=== PATIENT | male | born 1975 | race Caucasian/White ===

== ENCOUNTER 2018-02-09 00:55 | Emergency (ER) | payer MEDICAID ==
--- NOTE | 2018-02-09 01:25 | ER Document Report ---
ED General <OLLIE BRINK - Last Filed: 02/09/18 05:54> <MIN DE SANTIAGO - Last Filed: 02/09/18 08:26> <ABIEL GOLDMAN - Last Filed: 02/15/18 18:45> - General Stated Complaint: PSYCH EVAL Time Seen by Provider: 02/09/18 01:14 Notes: Patient is a very intoxicated 43-year-old male who presents with complaint of wanting to "blow up the world". He will not tell me why he wants to do this. He says he just got out of retirement today. Says he went and drank a lot. He says he does not like the way the world works. He will not answered me as to whether or not he is suicidal as well. He denies taking medications. He patient is very intoxicated and is difficult to get an accurate history as the patient continues to talk in circles. (OLLIE BRINK) - Related Data Allergies/Adverse Reactions: No Known Allergies Allergy (Unverified 02/09/18 02:35) Past Medical History - Social History Smoking Status: Unknown if Ever Smoked Frequency of alcohol use: Occasional Drug Abuse: None <OLLIE BRINK - Last Filed: 02/09/18 05:54> Review of Systems - Review of Systems -: Yes ROS unobtainable due to patient's medical condition - Patient is very intoxicated <OLLIE BRINK - Last Filed: 02/09/18 05:54> Physical Exam <OLLIE BRINK - Last Filed: 02/09/18 05:54> <MIN DE SANTIAGO - Last Filed: 02/09/18 08:26> <ABIEL GOLDMAN - Last Filed: 02/15/18 18:45> - Vital signs Vitals: Temp Pulse Resp BP Pulse Ox 98.0 F 98 18 131/80 H 96 02/09/18 01:08 02/09/18 01:08 02/09/18 01:08 02/09/18 01:08 02/09/18 01:08 - Notes Notes: General Appearance: Well nourished, alert, cooperative, no acute distress, no obvious discomfort. Vitals: reviewed, See vital signs table. Head: no swelling or tenderness to the head Eyes: PERRL, EOMI, Conjuctiva clear Mouth: No decreasd moisture Neck: Supple, no neck tenderness, No thyromegaly Lungs: No wheezing, No rales, No rhonci, No accessory muscle use, good air exchange bilaterally. Heart: Normal rate, Regular rythm, No murmur, no rub Abdomen: Normal BS, soft, No rigidity, No abdominal tenderness, No guarding, no rebound, no abdominal masses, no organomegaly Extremities: strength 5/5 in all extremities, good pulses in all extremities, no swelling or tenderness in the extremities, no edema. Skin: warm, dry, appropriate color, no rash Neuro: speech clear, oriented x 2, intoxicated affect, responds appropriately to questions. Renal nerves II through XII are intact. Distal sensation intact. Patient is able stand and walk on his own but does have staggered gait from being intoxicated. Gastric. Patient will answer some questions however is hard to get him to focus on certain specific questions as he goes off on tangents and sometimes I am unable to get answers to specific questions because of this. It is unclear if this is related to underlying psychiatric illness, alcohol intoxication, or combination thereof. (OLLIE BRINK) Course - Laboratory Result Diagrams: 02/09/18 02:20 02/09/18 02:20 <OLLIE BRINK - Last Filed: 02/09/18 05:54> - Laboratory Result Diagrams: 02/09/18 02:20 02/09/18 02:20 <MIN DE SANTIAGO - Last Filed: 02/09/18 08:26> - Laboratory Result Diagrams: 02/09/18 02:20 02/09/18 02:20 <ABIEL GOLDMAN - Last Filed: 02/15/18 18:45> - Re-evaluation Re-evalutation: 02/09/18 02:01 02/09/18 02:02 02/09/18 02:02 Patient's EKG does have concave up ST segment elevation is fairly diffuse I think is most likely just early repolarization abnormally. Patient is very drunk but denies any chest pain. I suspect this again is early repolarization abnormal however I will just obtain one troponin to make sure that it is within normal range. He does not have any symptoms of pericarditis; however, again the patient is very intoxicated. 02/09/18 05:54 Patient's troponin labs came back normal. Urine drug screen still pending. At this time patient is medically stable for psychiatric evaluation. I will fill out IVC paperwork on him. Dictation of this chart was performed using voice recognition software; therefore, there may be some unintended grammatical errors. (OLLIE BRINK) - Vital Signs Vital signs: Temp Pulse Resp BP Pulse Ox 97.8 F 100 20 136/80 H 96 02/09/18 10:03 02/09/18 10:03 02/09/18 10:03 02/09/18 10:03 02/09/18 10:03 - Laboratory Laboratory results interpreted by me: 02/09/18 02/09/18 02:20 08:10 Carbon Dioxide 19 L Urine Ketones TRACE H Salicylates < 1.0 L Acetaminophen < 10 L - EKG Interpretation by Me Additional EKG results interpreted by me: 02/09/18 02:02 EKG is reviewed and interpreted by me. EKG shows diffuse concave up ST segment elevation consistent with probable early repolarization abnormality. No reciprocal ST segment depression. DE interval, QRS duration, QTc intervals are within normal range. No old EKG available for comparison. (OLLIE BRINK) Discharge <OLLIE BRINK - Last Filed: 02/09/18 05:54> <MIN DE SANTIAGO - Last Filed: 02/09/18 08:26> <ABIEL GOLDMAN - Last Filed: 02/15/18 18:45> - Discharge Clinical Impression: Antisocial personality disorder Condition: Stable Disposition: HOME, SELF-CARE Additional Instructions: Your recommended to follow-up with outpatient mental health therapeutic services to appropriately address your triggers and copping skills. AT ANY TIME, IF YOUR SYMPTOMS CHANGE SIGNIFICANTLY OR WORSEN OR YOU DEVELOP NEW SYMPTOMS, RETURN TO THE EMERGENCY DEPARTMENT IMMEDIATELY FOR RE-EVALUATION. Referrals: [facility] [Outside] - Follow up as needed [facility] [Outside] - Follow up in 3-5 days
[2018-02-09 02:31] LABS: ABSOLUTE BASOPHILS # (AUTO) 0.1 10^3/uL (0.0-0.2); ABSOLUTE LYMPHOCYTES (AUTO) 1.9 10^3/uL (0.5-4.7); ABSOLUTE MONOCYTES (AUTO) 0.7 10^3/uL (0.1-1.4); ABSOLUTE NEUT (AUTO) 4.9 10^3/uL (1.7-8.2); BASOPHILS % (AUTO) 0.7 % (0-2); EOSINOPHILS % (AUTO) 0.4 % (0-6); HEMATOCRIT 44.1 % (37.9-51.0); HEMOGLOBIN 15.4 g/dL (13.5-17.0); MEAN CORPUSCULAR HEMOGLOBIN 29.7 pg (27.0-33.4); MEAN CORPUSCULAR HGB CONC 34.8 g/dL (32.0-36.0); MEAN CORPUSCULAR VOLUME 85 fl (80-97); MONOCYTES % (AUTO) 8.7 % (3-13); PLATELET COUNT 306 10^3/uL (150-450); RED BLOOD COUNT 5.17 10^6/uL (4.35-5.55); RED CELL DISTRIBUTION WIDTH 12.9 % (11.5-14.0); SEGMENTED NEUTROPHILS % (AUTO) 65.2 % (42-78); TOTAL CELLS COUNTED % (AUTO) 100 %; WHITE BLOOD COUNT 7.5 10^3/uL (4.0-10.5)
[2018-02-09 02:41] LABS: ALANINE AMINOTRANSFERASE 48 U/L (21-72); ALBUMIN 4.6 g/dL (3.5-5.0); ALCOHOL 166 mg/dL (NONE DETECTED); ALKALINE PHOSPHATASE 68 U/L (38-126); ANION GAP 19 (5-19); ASPARTATE AMINO TRANSFERASE 36 U/L (17-59); BILIRUBIN,DIRECT 0.3 mg/dL (0.0-0.4); BILIRUBIN,TOTAL 0.3 mg/dL (0.2-1.3); BLOOD UREA NITROGEN 8 mg/dL (7-20); CALCIUM 9.5 mg/dL (8.4-10.2); CARBON DIOXIDE 19 mmol/L (22-30); CHLORIDE 106 mmol/L (98-107); GLUCOSE 89 mg/dL (75-110); POTASSIUM 3.9 mmol/L (3.6-5.0); SODIUM 144.2 mmol/L (137-145)
[2018-02-09 02:43] LABS: ACETAMINOPHEN < 10 ug/mL (10-30); SALICYLATE < 1.0 mg/dL (2.0-20.0)
[2018-02-09 08:39] LABS: URINE AMPHETAMINES SCREEN NEGATIVE; URINE BARBITURATES SCREEN NEGATIVE; URINE BENZODIAZEPINES SCREEN NEGATIVE; URINE COCAINE SCREEN NEGATIVE; URINE MARIJUANA (THC) SCREEN NEGATIVE; URINE METHADONE SCREEN NEGATIVE; URINE PHENCYCLIDINE SCREEN NEGATIVE
[2018-02-09 08:44] LABS: APPEARANCE,URINE CLEAR; BILIRUBIN,URINE NEGATIVE (NEGATIVE); COLOR,URINE YELLOW; GLUCOSE, URINE NEGATIVE (NEGATIVE); KETONES,URINE TRACE mg/dL (NEGATIVE); LEUKOCYTE ESTERASE,URINE NEGATIVE (NEGATIVE); NITRITE,URINE NEGATIVE (NEGATIVE); PROTEIN,URINE NEGATIVE (NEGATIVE); URINE SPECIFIC GRAVITY 1.009; UROBILINOGEN,URINE NEGATIVE mg/dL (<2.0)
--- NOTE | 2018-02-09 09:22 | EKG REPORT ---
SEVERITY:- NORMAL ECG - SINUS RHYTHM : Confirmed by: Bre Brooke 09-Feb-2018 09:21:19
--- NOTE | 2018-02-09 10:07 | ER Document Report ---
Doctor's Note Notes: 02/09/18 10:06 Rounds: Chart reviewed and patient interviewed. Patient reportedly just got out of custodial yesterday. He was drinking heavily. He is here today feeling suicida. Vital signs are all normal. Lab studies were normal except for a blood alcohol of 166. Patient appears to be medically stable for transfer or discharge. Socorro Salas MD
--- NOTE | 2018-02-09 10:11 | PSYCHOLOGICAL NOTE ---
Psych Note - Psych Note Psych Note: Reason for Consult: Suicidal/homicidal ideation, substance abuse Consent permissions; none given Patient is alert, appears etoh with slurred speech. states he was released from halfway today, had no ride to get anywhere, got ahold of some beers and wanted to take [place] out. states he was going to invent a bomb. also states SI with plan by "slinging myself around a tree". but pt also states he does not want to hurt anyone. Patient disclosed that he was released from halfway yesterday and his roommate kicked him out. He continued to report that he was walking around [facility] and attempted to call multiple friends and nobody answered. He reports he then called 911 to report that he "was in a bad way" and needs help. Patient reports "I am here because I need help for my mental illness... The doctor from [facility] told me I should call." He continued to report that he should be "in a rubber room" and that he is "not fit for society." Patient makes multiple comments of homicidal ideation (i.e. going into [employer] and shooting up people or grabbing a knife and slitting someone's throat); patient confirms he does not have access to any weapons. Patient then began to state that he is trying to turn his life around to be be a "productive citizen of society" and does not want to harm others or himself; he wants to do something with his life. He reports that he called because he had now where to go and did not what to go back to halfway. Patient reports he has been inpatient in [facility], and one other inpatient psychiatric treatment. He reports that medications never help him and confirms he has never followed through with outpatient therapeutic services. He reports he receives disability, gets paid the 1st and only has a "few dollars on my halfway card and a few dollars in my wallet." He reports that he probably should not have drank last night and gone straight [facility] however chose not to. Reports trauma from childhood, being in and out pf halfway most of his life starting at age 15, and being diagnosed as "MDD" but feels that this might be bipolar. He continued to report that his personal schizophrenic symptoms are that he "lives in a delusional world" because he isolates himself, talks to himself and has imaginary friends. Patient is alert and orientated to person, place, time and circumstance. Mood shifts from euthymic to irritable with congruent affect. Clinician notes patient's mood is directly related to his perceived interpretation of whether he is being discharged or not (when feeling he is going to be discharged he becomes very irritable and argumentative). Patient endorses passive suicidal ideation i.e. no plans means or intent. It is noted the patient fluctuates back and forth stating that he wants help, does not want anything to harm himself or others but then will attempt to justify his need for inpatient psychiatric treatment and restate ideation. Delusions are absent and behaviors congruent with an intact reality based presentation i.e. organized and linear thought processes. Eye contact is poor. Conversational speech is long-winded and rambling requiring clinician many times to interrupt the patient to get required information. Intellectual abilities appear to be within the average range. Attention and concentration is poor. Insight, judgment, impulse control is fair as evidenced by the patient calling for assistance in coming into [facility] ED voluntarily. No medication recommendations at this time 301.9 (F60.9) unspecified personality disorder Impression\\plan: Patient is cleared from acute psychiatric services. Patient does not meet IVC criteria per [place] GS 122C. Patient behavior demonstrates strong cluster B traits with secondary gain. Patient is attempting to use inpatient psychiatric treatment to meet his socioeconomic needs. Patient is recommended to follow-up with outpatient mental health services to address his personality disorder, to learn triggers and coping skills. Inpatient psychiatric treatment would not be appropriate; the most effective course of treatment for personality disorder is therapeutic, which he would receive through outpatient services. Dr. Manjarrez was consulted and the care management this patient; attending physician is in agreement with recommendations and disposition.
[2018-02-09 10:20] VITALS: BP 136/80
== END 2018-02-09 10:20 | disposition home or self-care (01) ==
LOC: ER 00:55
DX: F60.2 Antisocial personality disorder (principal); R45.851 Suicidal ideations; R45.850 Homicidal ideations; F10.920 Alcohol use, unspecified with intoxication, uncomplicated; Y90.6 Blood alcohol level of 120-199 mg/100 ml
CPT/HCPCS: 36415; 80053; 80307; 81001; 84484; 85025; 93005; 93010; 99285

== ENCOUNTER 2018-02-10 02:56 | Emergency (ER) | payer MEDICAID ==
[2018-02-10 03:25] LABS: ABSOLUTE EOSINOPHILS # (AUTO) 0.2 10^3/uL (0.0-0.6); ABSOLUTE LYMPHOCYTES (AUTO) 1.4 10^3/uL (0.5-4.7); ABSOLUTE MONOCYTES (AUTO) 0.8 10^3/uL (0.1-1.4); ABSOLUTE NEUT (AUTO) 6.1 10^3/uL (1.7-8.2); BASOPHILS % (AUTO) 0.4 % (0-2); EOSINOPHILS % (AUTO) 2.5 % (0-6); HEMATOCRIT 45.5 % (37.9-51.0); HEMOGLOBIN 15.9 g/dL (13.5-17.0); LYMPHOCYTES % (AUTO) 16.5 % (13-45); MEAN CORPUSCULAR HEMOGLOBIN 29.6 pg (27.0-33.4); MEAN CORPUSCULAR VOLUME 85 fl (80-97); MONOCYTES % (AUTO) 9.3 % (3-13); PLATELET COUNT 321 10^3/uL (150-450); RED BLOOD COUNT 5.37 10^6/uL (4.35-5.55); SEGMENTED NEUTROPHILS % (AUTO) 71.3 % (42-78); TOTAL CELLS COUNTED % (AUTO) 100 %; WHITE BLOOD COUNT 8.6 10^3/uL (4.0-10.5)
--- NOTE | 2018-02-10 03:27 | ER Document Report ---
ED Psych Disorder / Suicide - General Mode of Arrival: Ambulatory Information source: Patient TRAVEL OUTSIDE OF THE [place] IN LAST 30 DAYS: No <ESTRELLITA LACY - Last Filed: 02/10/18 03:35> <JUAN MCGRAW - Last Filed: 02/10/18 03:59> - General Chief Complaint: Psych Problem Stated Complaint: IVC Time Seen by Provider: 02/10/18 03:01 Notes: Patient is a 43 year old male with anxiety, bipolar disorder and depression presents to the emergency department via [facility] complaining of suicidal ideation and homicidal ideation. According to IVC paperwork via [facility] patient stated he wanted to slit peoples throats and watch them bleed then proceed to slit his own throat. At bedside patient states he is depressed and suicidal and mentions presenting to the emergency department yesterday for similar symptoms. He states he was discharged with resources but chose not to follow up. He also states he is noncompliant with his medications. According to [facility] records, patient presented to the emergency department on 02/08 stating he would like to blow up the world and reports getting out of prison that day. (ESTRELLITA LACY) - Related Data Allergies/Adverse Reactions: No Known Allergies Allergy (Unverified 02/09/18 02:35) Past Medical History - General Information source: Patient, Law Enforcement - Social History Smoking Status: Unknown if Ever Smoked Family History: Reviewed & Not Pertinent - Past Medical History Cardiac Medical History: Reports: Hx Heart Attack - x'2 Psychiatric Medical History: Reports: Hx Bipolar Disorder, Hx Depression <ESTRELLITA LACY - Last Filed: 02/10/18 03:35> Review of Systems - Review of Systems Constitutional: No symptoms reported EENT: No symptoms reported Cardiovascular: No symptoms reported Respiratory: No symptoms reported Gastrointestinal: No symptoms reported Genitourinary: No symptoms reported Male Genitourinary: No symptoms reported Musculoskeletal: No symptoms reported Skin: No symptoms reported Hematologic/Lymphatic: No symptoms reported Neurological/Psychological: See HPI, Homicidal ideation, Suicidal ideation -: Yes All other systems reviewed and negative <ESTRELLITA LACY - Last Filed: 02/10/18 03:35> Physical Exam - General General appearance: Anxious, Other - Disheveled - HEENT Head: Normocephalic, Atraumatic Eyes: Normal Conjunctiva: Normal Extraocular movements intact: Yes Pupils: PERRL Mucous membranes: Normal Neck: Normal - Respiratory Respiratory status: No respiratory distress Chest status: Nontender Breath sounds: Normal Chest palpation: Normal - Cardiovascular Rhythm: Regular Heart sounds: Normal auscultation Murmur: No Friction rub: No Gallop: None auscultated - Extremities General upper extremity: Normal ROM General lower extremity: Normal ROM - Neurological Neuro grossly intact: Yes Cognition: Normal Orientation: AAOx4 Rosita Coma Scale Eye Opening: Spontaneous [place] Coma Scale Verbal: Oriented Rosita Coma Scale Motor: Obeys Commands Rosita Coma Scale Total: 15 Speech: Normal - Psychological Associated symptoms: Anxious - Skin Skin Temperature: Warm Skin Moisture: Dry Skin Color: Normal <ESTRELLITA LACY - Last Filed: 02/10/18 03:35> - Vital signs Vitals: Temp Pulse Resp BP Pulse Ox 97.8 F 86 18 132/87 H 95 02/10/18 03:04 02/10/18 03:04 02/10/18 03:04 02/10/18 03:04 02/10/18 03:04 Course - Laboratory Result Diagrams: 02/10/18 03:10 02/10/18 03:10 <ESTRELLITA LACY - Last Filed: 02/10/18 03:35> - Laboratory Result Diagrams: 02/10/18 03:10 02/10/18 03:10 - EKG Interpretation by Nc EKG shows normal: Sinus rhythm Rate: Normal Rhythm: NSR <JUAN MCGRAW - Last Filed: 02/10/18 03:59> - Re-evaluation Re-evalutation: 02/10/18 03:47 Patient is a 43-year-old male who comes in complaining of suicidal as well as homicidal ideation. He was placed on IVC paperwork by crisis services. Patient has a history of anxiety and depression and is supposed to be on medications but has not been prescribed them in quite some time. He states that he is both anxious and depressed. His plan was to cut other people's throat and then cut his own throat. Blood work is within normal limits. Patient is medically stable. He has been given Zyprexa for anxiety and sleep this evening. He will be held for evaluation by mental health services. Patient is agreeable to this plan. (JUAN MCGRAW) - Vital Signs Vital signs: Temp Pulse Resp BP Pulse Ox 97.8 F 86 18 132/87 H 95 02/10/18 03:04 02/10/18 03:04 02/10/18 03:04 02/10/18 03:04 02/10/18 03:04 - Laboratory Laboratory results interpreted by me: 02/10/18 02/10/18 03:10 03:10 Chloride 108 H Urine Ketones TRACE H Salicylates < 1.0 L Acetaminophen < 10 L Discharge <ESTRELLITA LACY - Last Filed: 02/10/18 03:35> <JUAN MCGRAW - Last Filed: 02/10/18 03:59> - Discharge Clinical Impression: Suicidal ideation, Homicidal ideation Condition: Stable Disposition: OTHER Scribe Attestation: 02/10/18 03:48 I personally performed the services described in the documentation, reviewed and edited the documentation which was dictated to the scribe in my presence, and it accurately records my words and actions. (JUAN MCGRAW) Scribe Documentation - Scribe Written by Junior:: Junior Sheth, 02/10/2018 03:34 acting as scribe for :: Michael <ESTRELLITA LACY - Last Filed: 02/10/18 03:35>
[2018-02-10 03:34] LABS: APPEARANCE,URINE CLEAR; BILIRUBIN,URINE NEGATIVE (NEGATIVE); COLOR,URINE YELLOW; GLUCOSE, URINE NEGATIVE (NEGATIVE); KETONES,URINE TRACE mg/dL (NEGATIVE); LEUKOCYTE ESTERASE,URINE NEGATIVE (NEGATIVE); NITRITE,URINE NEGATIVE (NEGATIVE); PROTEIN,URINE NEGATIVE (NEGATIVE); URINE SPECIFIC GRAVITY 1.019; UROBILINOGEN,URINE NEGATIVE mg/dL (<2.0)
[2018-02-10] MEDS ORDERED: OLANZAPINE 5 MG TAB.RAPDIS PO ONE (03:34)
[2018-02-10 03:36] LABS: ACETAMINOPHEN < 10 ug/mL (10-30); ALANINE AMINOTRANSFERASE 56 U/L (21-72); ALBUMIN 4.6 g/dL (3.5-5.0); ALCOHOL < 10 mg/dL (NONE DETECTED); ALKALINE PHOSPHATASE 80 U/L (38-126); ANION GAP 14 (5-19); ASPARTATE AMINO TRANSFERASE 39 U/L (17-59); BILIRUBIN,DIRECT 0.3 mg/dL (0.0-0.4); BILIRUBIN,TOTAL 0.6 mg/dL (0.2-1.3); BLOOD UREA NITROGEN 17 mg/dL (7-20); CALCIUM 9.8 mg/dL (8.4-10.2); CARBON DIOXIDE 22 mmol/L (22-30); CHLORIDE 108 mmol/L (98-107); GLUCOSE 93 mg/dL (75-110); POTASSIUM 3.9 mmol/L (3.6-5.0); SALICYLATE < 1.0 mg/dL (2.0-20.0); SODIUM 143.8 mmol/L (137-145); TOTAL PROTEIN 7.6 g/dL (6.3-8.2)
[2018-02-10 03:45] LABS: URINE AMPHETAMINES SCREEN NEGATIVE; URINE BARBITURATES SCREEN NEGATIVE; URINE BENZODIAZEPINES SCREEN NEGATIVE; URINE COCAINE SCREEN NEGATIVE; URINE MARIJUANA (THC) SCREEN UNCONFIRMED POSITIVE; URINE METHADONE SCREEN NEGATIVE; URINE PHENCYCLIDINE SCREEN NEGATIVE
--- NOTE | 2018-02-10 10:48 | ER Document Report ---
Doctor's Note Notes: 02/10/18 10:45 Patient resting comfortably in bed, mental health team is very spoken to him about appropriate utilization of services, patient seems to provide a number of excuses as to why he did not go through proper channels to get help, but does not take responsibility for his actions, patient was advised to follow-up as an outpatient appropriately for further assistance with obtaining his mental health medications that he was on previously, he does admit that he is currently homeless as he was just released from care home after having an argument with his roommate and is under a restraining order from going back to the property, states that he has a friend that he might be able to stay with but was unable to get in touch with him on the phone yesterday evening patient is medically cleared for discharge, provided with a list of resources to follow-up with Discharge - Discharge Clinical Impression: Suicidal ideation, Homicidal ideation, Antisocial personality disorder Condition: Stable Disposition: HOME, SELF-CARE Additional Instructions: AT ANY TIME, IF YOUR SYMPTOMS CHANGE SIGNIFICANTLY OR WORSEN OR YOU DEVELOP NEW SYMPTOMS, RETURN TO THE EMERGENCY DEPARTMENT IMMEDIATELY FOR RE-EVALUATION. Referrals: [facility] [Outside] - Follow up as needed Scribe Attestation: 02/10/18 03:48 I personally performed the services described in the documentation, reviewed and edited the documentation which was dictated to the scribe in my presence, and it accurately records my words and actions.
[2018-02-10 10:58] VITALS: BP 121/77
--- NOTE | 2018-02-10 23:10 | EKG REPORT ---
SEVERITY:- OTHERWISE NORMAL ECG - SINUS RHYTHM BORDERLINE LEFT AXIS DEVIATION : Confirmed by: Bre Brooke 10-Feb-2018 23:09:18
--- NOTE | 2018-02-11 22:10 | PSYCHOLOGICAL NOTE ---
Psych Note - Psych Note Psych Note: Reason For Consult: IVC Pt. reports having SI/HI thoughts, presents to ED on IVC papers with [facility], pt. has HX of bipolar and MDD, hasn't been on meds for months, was in [place] last year for significant time. Had plan to cut people's throats to watch them bleed and cut his own throat. Pt. has been calm and cooperative. Patient was evaluated by this clinician and Dr. Manjarrez Patient first stated he came to [facility] because of a suicide attempt but then stated he only had thoughts. He reports nothing has changed from the last time he was evaluated (patient was evaluated yesterday by this clinician). He confirms that he did not follow up with recommendations provided. Patient reports severe depression and suicidal ideation that he has "suffered my whole life; "however, denies requesting assistance while in senior living and again confirms he has not been medication compliant for years "because they don't work." Patient disclosed he thought it would cost $20 to see a nurse in senior living and then confirms he has been in senior living multiple times and understands the processes. No medication recommendations at this time 301.9 (F60.9) unspecified personality disorder Impression\\plan: Patient is cleared from acute psychiatric services. Patient does not meet IVC criteria per [place] GS 122C. Patient behavior demonstrates strong cluster B traits with secondary gain. Patient is attempting to use inpatient psychiatric treatment to meet his socioeconomic needs. Patient was just evaluated yesterday for the same complaints. Patient is again recommended to follow-up with outpatient mental health services to address his personality disorder, to learn triggers and coping skills. Inpatient psychiatric treatment would not be appropriate; the most effective course of treatment for personality disorder is therapeutic, which he would receive through outpatient services. Dr. Manjarrez was present for evaluation and is in agreement with care and management of this patient; attending physician is in agreement with recommendations and disposition.
== END 2018-02-10 11:15 | disposition home or self-care (01) ==
LOC: ER 02:56
DX: R45.850 Homicidal ideations (principal); R45.851 Suicidal ideations; F60.2 Antisocial personality disorder; F32.9 Major depressive disorder, single episode, unspecified; F41.9 Anxiety disorder, unspecified; Z91.14 Patient's other noncompliance with medication regimen; Z59.0 Homelessness; I25.2 Old myocardial infarction
CPT/HCPCS: 93005; 99285; 36415; 80307 ×4; 85025; 80053; 81001; 93010; J3490

== ENCOUNTER 2018-03-01 13:36 | Emergency (ER) | payer MEDICAID ==
[2018-03-01 14:41] LABS: ABSOLUTE BASOPHILS # (AUTO) 0.1 10^3/uL (0.0-0.2); ABSOLUTE LYMPHOCYTES (AUTO) 0.9 10^3/uL (0.5-4.7); ABSOLUTE MONOCYTES (AUTO) 0.5 10^3/uL (0.1-1.4); ABSOLUTE NEUT (AUTO) 5.8 10^3/uL (1.7-8.2); BASOPHILS % (AUTO) 0.9 % (0-2); EOSINOPHILS % (AUTO) 0.3 % (0-6); HEMATOCRIT 45.1 % (37.9-51.0); HEMOGLOBIN 15.5 g/dL (13.5-17.0); MEAN CORPUSCULAR HEMOGLOBIN 29.7 pg (27.0-33.4); MEAN CORPUSCULAR HGB CONC 34.4 g/dL (32.0-36.0); MEAN CORPUSCULAR VOLUME 86 fl (80-97); PLATELET COUNT 369 10^3/uL (150-450); RED BLOOD COUNT 5.24 10^6/uL (4.35-5.55); RED CELL DISTRIBUTION WIDTH 13.1 % (11.5-14.0); SEGMENTED NEUTROPHILS % (AUTO) 79.8 % (42-78); TOTAL CELLS COUNTED % (AUTO) 100 %; WHITE BLOOD COUNT 7.3 10^3/uL (4.0-10.5)
--- NOTE | 2018-03-01 14:57 | ER Document Report ---
ED General <DE SANTIAGOMIN - Last Filed: 03/01/18 16:17> - General TRAVEL OUTSIDE OF THE U.S. IN LAST 30 DAYS: No - HPI Patient complains to provider of: Suicidal ideation <MARIANA LEUNG - Last Filed: 03/01/18 22:31> - General Chief Complaint: Suicidal Ideation Stated Complaint: SUICIDAL IDEATION Time Seen by Provider: 03/01/18 14:33 - HPI Notes: Patient coming in for suicidal ideation. Patient states he has planned poisoning however is unable to give any further information. Patient does reveal he recently was released from intermediate patient has had multiple other visits for psychiatric reasons here in the hospital. Denies any fever chills nausea vomiting diarrhea. Patient states that he was seen at [place] started on certain medications are thinks those medications were not for him. Patient states he has not been able take any other medications at this time is not currently taking anything. Patient does admit to using amphetamines recently. Resting comfortably no signs of any obvious distress (MARIANA LEUNG) - Related Data Allergies/Adverse Reactions: No Known Allergies Allergy (Unverified 02/09/18 02:35) Past Medical History - Social History Smoking Status: Unknown if Ever Smoked Family History: Reviewed & Not Pertinent Patient has suicidal ideation: Yes Patient has homicidal ideation: No - Past Medical History Cardiac Medical History: Reports: Hx Heart Attack - x'2 Renal/ Medical History: Denies: Hx Peritoneal Dialysis Psychiatric Medical History: Reports: Hx Bipolar Disorder, Hx Depression <MARIANA LEUNG - Last Filed: 03/01/18 22:31> Review of Systems - Review of Systems Constitutional: No symptoms reported EENT: No symptoms reported Cardiovascular: No symptoms reported Respiratory: No symptoms reported Gastrointestinal: No symptoms reported Genitourinary: No symptoms reported Male Genitourinary: No symptoms reported Musculoskeletal: No symptoms reported Skin: No symptoms reported Hematologic/Lymphatic: No symptoms reported Neurological/Psychological: Suicidal ideation -: Yes All other systems reviewed and negative <MARIANA LEUNG - Last Filed: 03/01/18 22:31> Physical Exam - Vital signs Interpretation: Normal - General General appearance: Appears well, Alert - HEENT Head: Normocephalic, Atraumatic Eyes: Normal Pupils: PERRL - Respiratory Respiratory status: No respiratory distress Chest status: Nontender Breath sounds: Normal Chest palpation: Normal - Cardiovascular Rhythm: Regular Heart sounds: Normal auscultation Murmur: No - Abdominal Inspection: Normal Distension: No distension Bowel sounds: Normal Tenderness: Nontender Organomegaly: No organomegaly - Back Back: Normal, Nontender - Extremities General upper extremity: Normal inspection, Nontender, Normal color, Normal ROM , Normal temperature General lower extremity: Normal inspection, Nontender, Normal color, Normal ROM , Normal temperature, Normal weight bearing. No: Peter's sign - Neurological Neuro grossly intact: Yes Cognition: Normal Orientation: AAOx4 Rosita Coma Scale Eye Opening: Spontaneous [place] Coma Scale Verbal: Oriented Rosita Coma Scale Motor: Obeys Commands Rosita Coma Scale Total: 15 Speech: Normal Motor strength normal: LUE, RUE, LLE, RLE Sensory: Normal - Psychological Associated symptoms: Normal affect, Normal mood - Skin Skin Temperature: Warm Skin Moisture: Dry Skin Color: Normal <MARIANA LEUNG - Last Filed: 03/01/18 22:31> - Vital signs Vitals: Temp Pulse Resp BP Pulse Ox 98.4 F 103 H 16 141/85 H 97 03/01/18 13:45 03/01/18 13:45 03/01/18 13:45 03/01/18 13:45 03/01/18 13:45 Course - Laboratory Result Diagrams: 03/01/18 14:22 03/01/18 14:22 <MIN DE SANTIAGO - Last Filed: 03/01/18 16:17> - Laboratory Result Diagrams: 03/01/18 14:22 03/01/18 14:22 <MARIANA LEUNG - Last Filed: 03/01/18 22:31> - Re-evaluation Re-evalutation: 03/01/18 22:30 Patient is medically clear for psychiatric evaluation. Our psychiatric team recommended discharge at this time follow-up in outpatient care providers. Patient looks to have chronic suicidal ideation with no specific plan or ideation. Agree with this assessment plan patient was discharged. (MARIANA LEUNG) - Vital Signs Vital signs: Temp Pulse Resp BP Pulse Ox 98.7 F 98 16 138/80 H 99 03/01/18 17:38 03/01/18 17:38 03/01/18 17:38 03/01/18 17:38 03/01/18 17:38 - Laboratory Laboratory results interpreted by me: 03/01/18 03/01/18 03/01/18 14:22 14:22 14:22 Seg Neutrophils % 79.8 H Lymphocytes % 12.0 L Carbon Dioxide 21 L Salicylates < 1.0 L Acetaminophen < 10 L [place] < 0.2 L Discharge <RANDY DE SANTIAGOIME - Last Filed: 03/01/18 16:17> <MARIANA LEUNG - Last Filed: 03/01/18 22:31> - Discharge Clinical Impression: Unspecified personality disorder Condition: Stable Disposition: HOME, SELF-CARE Additional Instructions: You have been evaluated by both medical and behavioral health teams that have deemed appropriate for discharge. You are recommended to follow-up with intense individual therapy in outpatient setting to continue to build your coping skills. Is also recommended you continue taking your prescribed medication that she received during your previous hospitalization. DEPRESSION: Your evaluation reveals that you have mental depression. While symptoms may be vague, they often include disturbance of sleep, fatigue, loss of appetite , and general loss of interest in life. While depression may be a side effect of drugs, or a reaction to a major change in your life, many cases have no known cause. If depression is acute, and related to a major loss in your life, you can expect it to clear completely with time. If you have been depressed a long time , are prone to repeated bouts of depression or low mood, or have been thinking of suicide, get help. Depression can be treated with anti-depressant medication and counselling. Long-term depression will often take a few weeks to clear, even with appropriate medication. Follow-up care is important. SUICIDAL IDEATION: Suicidal ideation is a common medical term for thoughts about suicide, which may be as detailed as a formulated plan, without the suicidal act itself. Although most people who undergo suicidal ideation do not commit suicide, some go on to make suicide attempts. The range of suicidal ideation varies greatly from fleeting to detailed planning, role playing, and unsuccessful attempts. While thoughts about suicide are common, most people do not carry out serious actions to commit suicide. Based upon your evaluation and discussion with you, we do not believe you are currently at risk to act upon your thoughts of suicide. You have agreed to return to the Emergency Department, at any time , if you feel inclined to act upon your suicidal thoughts. FOLLOW-UP CARE: If you experience worsening or a significant change in your symptoms, notify the physician immediately or return to the Emergency Department at any time for re-evaluation.
[2018-03-01 15:08] LABS: AMORPHOUS SEDIMENT,URINE TRACE /HPF; APPEARANCE,URINE TURBID; BILIRUBIN,URINE NEGATIVE (NEGATIVE); COLOR,URINE YELLOW; GLUCOSE, URINE NEGATIVE (NEGATIVE); KETONES,URINE NEGATIVE (NEGATIVE); LEUKOCYTE ESTERASE,URINE NEGATIVE (NEGATIVE); NITRITE,URINE NEGATIVE (NEGATIVE); PROTEIN,URINE NEGATIVE (NEGATIVE); URINE SPECIFIC GRAVITY 1.018; UROBILINOGEN,URINE NEGATIVE mg/dL (<2.0)
[2018-03-01 15:10] LABS: ALANINE AMINOTRANSFERASE 57 U/L (21-72); ALBUMIN 4.4 g/dL (3.5-5.0); ALKALINE PHOSPHATASE 96 U/L (38-126); ANION GAP 14 (5-19); ASPARTATE AMINO TRANSFERASE 34 U/L (17-59); BILIRUBIN,DIRECT 0.4 mg/dL (0.0-0.4); BILIRUBIN,TOTAL 0.5 mg/dL (0.2-1.3); BLOOD UREA NITROGEN 11 mg/dL (7-20); CALCIUM 9.5 mg/dL (8.4-10.2); CARBON DIOXIDE 21 mmol/L (22-30); CHLORIDE 107 mmol/L (98-107); GLUCOSE 92 mg/dL (75-110); POTASSIUM 4.5 mmol/L (3.6-5.0); SODIUM 141.5 mmol/L (137-145); TOTAL PROTEIN 8.1 g/dL (6.3-8.2)
[2018-03-01 15:11] LABS: ACETAMINOPHEN < 10 ug/mL (10-30); ALCOHOL < 10 mg/dL (NONE DETECTED); SALICYLATE < 1.0 mg/dL (2.0-20.0)
[2018-03-01 15:22] LABS: URINE AMPHETAMINES SCREEN UNCONFIRMED POSITIVE; URINE BARBITURATES SCREEN NEGATIVE; URINE BENZODIAZEPINES SCREEN NEGATIVE; URINE COCAINE SCREEN NEGATIVE; URINE MARIJUANA (THC) SCREEN UNCONFIRMED POSITIVE; URINE METHADONE SCREEN NEGATIVE; URINE PHENCYCLIDINE SCREEN NEGATIVE
--- NOTE | 2018-03-01 16:10 | PSYCHOLOGICAL NOTE ---
Psych Note - Psych Note Psych Note: Reason for Consult: Suicidal ideation Pt comes in today for SI. Pt comes from [facility]. Pt states he wants to poison himself. Pt plan is vague but he is adamant that he needs help. Patient disclosed that he went to [facility] after calling mobile crisis because he is acutely suicidal. Patient discloses that he wants help. He disclosed that when he arrives to [facility] they told him that he needed to come to [facility]. Patient disclosed that he did go to [facility] for a "couple days" and was put on lithium but it was not the right one for him. He reports that he is even willing to go back to [place]; "it has been a struggle because we can never find the right medications." Patient reports he has plan of either "overdosing, slitting his wrists, jumping into traffic." Patient discloses that he has tried everything and can't seem to get the help he needs. When asked about any recent drug use he disclosed that he has drank some done marijuana. He continued to state that there was a time a day or 2 ago where he was having trouble sleeping and so somebody offered him some methamphetamine and said it helped him stay awake. When asked why he would take medication that will keep him awake when he just stated that he was trying to get to sleep he became very flustered and stated that he could not answer the question because the clinician is confusing him. Clinician reminded patient about previous conversation during his 02/10/2018 visit on that the patient needs intensive therapy because he has a personality disorder with chronic passive suicidal ideation. Patient became frustrated stating that is not what he needs he needs inpatient for stabilization with medication. Behavior health team contacted [facility] and confirmed the patient was admitted on 02/10/2018 and discharged on 02/23/2018. Received discharge plan. She was discharged on Abilify, Cogentin, Lunesta, BuSpar, and Lithobid. Patient is alert and orientated to person, place, time and circumstance. Mood is euthymic with congruent affect. Patient endorses chronic passive suicidal ideation i.e. no true plan means or intent. It is noted the patient fluctuates back and forth stating that he wants help, does not want anything to harm himself or others but then will attempt to justify his need for inpatient psychiatric treatment and restate ideation. Delusions are absent and behaviors congruent with an intact reality based presentation i.e. organized and linear thought processes. Eye contact is fair. Conversational speech is long-winded and rambling requiring clinician many times to interrupt the patient to get required information. Intellectual abilities appear to be within the average range. Attention and concentration is poor. Insight, judgment, impulse control is fair as evidenced by the patient calling for assistance in coming into [facility] ED voluntarily. No medication recommendations at this time 301.9 (F60.9) unspecified personality disorder Impression/Plan: Patient is cleared from acute psychiatric services. Patient was just released from [facility] 6 days ago with medications. Patient states that he wants to get on medication however states he does not like the medication they put him on at [facility]. He continued disclosed that he is never been able to find medication that works. Clinician reminded patient about previous conversation during his 02/10/2018 visit on that the patient needs intensive therapy because he has a personality disorder with chronic passive suicidal ideation. Patient is demonstrating a pattern of abuse of emergency services and using psychiatric hospitalization to meet his social needs i.e. homelessness. Patient is noncompliant with his medication he was provided. Patient is recommended for outpatient individual therapy to address his triggers and develop coping skills. Inpatient psychiatric treatment would not be appropriate. Dr. Manjarrez was consulted and the care and management of this patient; attending physician is in agreement with recommendations and disposition.
[2018-03-01 17:39] VITALS: BP 138/80
--- NOTE | 2018-03-01 22:35 | EKG REPORT ---
SEVERITY:- NORMAL ECG - SINUS RHYTHM : Confirmed by: Katie Almeida MD 01-Mar-2018 22:34:38
== END 2018-03-01 17:37 | disposition home or self-care (01) ==
LOC: ER 13:36
DX: F60.9 Personality disorder, unspecified (principal); F19.10 Other psychoactive substance abuse, uncomplicated; R45.851 Suicidal ideations; I25.2 Old myocardial infarction
CPT/HCPCS: 36415; 80053; 80178; 80307; 81001; 85025; 93005; 93010; 99285

== ENCOUNTER 2018-03-11 14:06 | Emergency (ER) | payer MEDICAID, OTHER ==
[2018-03-11] MEDS: NORMAL SALINE 1000 ML 1,000 ML IV PRN ×4 (14:07→15:15)
[2018-03-11] MEDS ORDERED: ACETAMINOPHEN 650 MG SUPP.RECT PR ONE (14:23)
[2018-03-11] MEDS ORDERED: ACETAMINOPHEN 325 MG SUPP.RECT PR ONE ×2 (14:24→16:31)
--- NOTE | 2018-03-11 14:49 | ER Document Report ---
Procedures - Central Line Right Femoral Time completed: 14:45 Central line pre-insertion: Sterile PPE donned, Betadine prep applied, Chloraprep applied, Sterile drapes applied Central line size (Fr.): 7 Central line lumen type: Triple Ultrasound guided: Yes Line secured with sutures: Yes Central line post-insertion: Blood return from lumens, Biopatch applied, Sutured , Sterile dressing applied Number of attempts: 1 Complications: No Notes: 03/11/18 14:49 Patient had emergency need for access. Ultrasound-guided placement of right femoral vein obtained. 03/11/18 14:51 The right tibia was also prepped with ChloraPrep. A IO was placed prior to placing the central line. No complications. Secured with device.
--- NOTE | 2018-03-11 14:58 | ER Document Report ---
Doctor's Note Notes: 03/11/18 14:57 ED procedure note: Intraosseous access line Emergent consent implied. There was no IV access. The left interosseous line in the left tibia did not appear to be functioning properly. The right medial tibia was prepped. The IO drill was used. Return of blood was obtained. The lines were flushed and secured with secure device. No complications.
[2018-03-11] MEDS: PROPOFOL 1,000 MG/100 ML INFUS..BTL IV PRN ×2 (14:59→18:56)
--- NOTE | 2018-03-11 15:29 | ER Document Report ---
ED General - General Chief Complaint: Unresponsive Stated Complaint: RESPIRATORY DISTRESS Mode of Arrival: Medic - This gentleman presented emergently from the scene after being found down while doing yard work by a friend last known well an hour before. Prior to arrival a cord sample was taken at which time the patient' s temperature is noted to be 108. Information source: Emergency Med Personnel TRAVEL OUTSIDE OF THE [place] IN LAST 30 DAYS: No - HPI Patient complains to provider of: unresponsive, found outside Onset: Just prior to arrival - Related Data Allergies/Adverse Reactions: No Known Allergies Allergy (Verified 03/11/18 15:26) Past Medical History - General Information source: Emergency Med Personnel Cannot obtain history due to: Other - Social History Smoking Status: Unknown if Ever Smoked Family History: Reviewed & Not Pertinent - Past Medical History Cardiac Medical History: Reports: Hx Heart Attack - x'2 Renal/ Medical History: Denies: Hx Peritoneal Dialysis Psychiatric Medical History: Reports: Hx Bipolar Disorder, Hx Depression Review of Systems - Review of Systems -: Yes ROS unobtainable due to patient's medical condition Physical Exam - Vital signs Vitals: Resp 25 H 03/11/18 14:08 - General General appearance: Unresponsive In distress: Severe - HEENT Head: Normocephalic Eyes: Normal Conjunctiva: Normal Pupils: Dilated - Respiratory Respiratory status: Respiratory distress, Agonal respirations Chest status: Nontender Breath sounds: Rhonchi Chest palpation: Normal - Cardiovascular Rhythm: Tachycardia Murmur: No - Abdominal Inspection: Normal Distension: No distension Bowel sounds: Normal - Back Back: Normal - Extremities General upper extremity: Normal inspection General lower extremity: Normal inspection Shoulder: Normal Arm: Normal Elbow: Normal Forearm: Normal - Neurological Neuro grossly intact: No - Spontaneous occasional movements in the extremities, otherwise obtunded unr [place] Coma Scale Eye Opening: None Rosita Coma Scale Verbal: None [place] Coma Scale Motor: Localizes to Pain [place] Coma Scale Total: 7 Speech: Other Course - Re-evaluation Re-evalutation: 03/11/18 20:20 This 43-year-old man presented for evaluation of hyperthermia emergently from the field with a rectal temperature of 108. He was being bagged due to poor respiratory effort prior to arrival he arrived with profound tachycardia as well as profound hypotension. He was taken emergently to the resuscitation bay at which time his central line was placed in the right groin as well as access obtained in the axilla with 2 IO needle was subsequently placed. He was placed on a monitor emergently noted to have a heart rate in the 170s, a temperature catheter was placed in his central time. Meneses was 108, the patient remained somnolent with poor respiratory effort receiving assisted breaths via bag valve mask. Determination was made to proceed with intubation for respiratory protection as well as further evaluation and workup. Patient received rocuronium and etomidate and subsequently had an aspiration event during initial intubation trauma, desaturated following placement of ET tube, ET tube was subsequently deflated and pulled and he received bag assisted breaths until an appropriate saturation was obtained in the 90s again. He was subsequently intubated utilizing a glide scope and 8-0 ET tube. He was subsequently started on large volume resuscitation with saline, he received 3 L of cold saline as well as had his axilla packed with ice packs was placed on a cooling blanket. He was given rocuronium again, he was sedated utilizing propofol. Following administration of per rectum Tylenol fluids a blood gas was obtained as well as a toxicology panel and a myriad of other laboratory evaluations. A chest x-ray confirmed placement of ET tube. Contacted [facility] ICU physician Dr. Chua who agreed to receive this patient in transfer to the intensive care unit. As this patient was discovered to have a psychiatric history with the use of lithium as well as SSRIs and he had been exposed potentially to external pesticides made determination to proceed with administration of dantrolene. Patient's temperature began to improve prior to administration of dantrolene is around 105F, after administration of dantrolene as well as Versed as needed for synchrony with the vent this patient had a temperature which rectified to the 98C range. Continued large volume fluid resuscitation utilizing lactated Ringer's as this patient had received saline and large-volume prior. During this time a determination to proceed with CT imaging of the head to ensure there is no underlying intracranial process. CT head did not demonstrate any obvious bleed or infarct. Patient was noted to be markedly acidotic on initial ABG as result maintained elevated rate, decreased patient's FiO2 to 50%. Following administration of and total 5 L of fluid patient was received in transport. Critical care transport team, his blood pressure had improved to the 110 systolic range, his heart rate had improved to the 110 bpm range and his temperature was now 98 F. He remained obtunded and was poorly responsive during this time, prior to transport he began to have large volume loose bowel movements as such as stool waist management system was inserted. - Vital Signs Vital signs: Temp Pulse Resp BP Pulse Ox 21 H 91/61 L 100 03/11/18 18:55 03/11/18 18:55 03/11/18 18:55 - Laboratory Result Diagrams: 03/11/18 14:34 03/11/18 14:34 Laboratory results interpreted by me: 03/11/18 03/11/18 03/11/18 14:34 14:34 14:34 Lymphocytes % 45.5 H Monocytes % 2.4 L Carbonic Acid ABG pH ABG pCO2 ABG pO2 ABG HCO3 ABG Total CO2 ABG O2 Saturation Sodium 145.5 H Potassium 5.8 H Chloride 110 H Carbon Dioxide 18 L Creatinine 1.88 H Est GFR ( Amer) 48 L Est GFR (Non-Af Amer) 40 L Glucose 127 H Lactic Acid 4.2 H AST 64 H Creatine Kinase 585 H Urine Protein Urine Glucose (UA) Urine Blood Salicylates < 1.0 L Acetaminophen < 10 L [place] < 0.2 L 03/11/18 03/11/18 03/11/18 14:34 15:31 15:42 Lymphocytes % Monocytes % Carbonic Acid 2.31 H ABG pH 7.04 L* ABG pCO2 76.7 H* ABG pO2 108.9 H ABG HCO3 ABG Total CO2 22.4 L ABG O2 Saturation Sodium Potassium Chloride Carbon Dioxide Creatinine Est GFR ( Amer) Est GFR (Non-Af Amer) Glucose Lactic Acid AST Creatine Kinase Urine Protein 100 H Urine Glucose (UA) 50 H Urine Blood LARGE H Salicylates Acetaminophen [place] < 0.2 L 03/11/18 03/11/18 16:53 18:00 Lymphocytes % Monocytes % Carbonic Acid 1.87 H ABG pH 7.12 L* ABG pCO2 62.1 H ABG pO2 76.5 L ABG HCO3 19.5 L ABG Total CO2 21.4 L ABG O2 Saturation 90.0 L Sodium Potassium Chloride Carbon Dioxide Creatinine Est GFR ( Amer) Est GFR (Non-Af Amer) Glucose Lactic Acid 3.1 H AST Creatine Kinase Urine Protein Urine Glucose (UA) Urine Blood Salicylates Acetaminophen [place] Procedures - Intubation Orotracheal Airway evaluation: Abnormal 3-3-2 rule, Copious secretions, Large tongue, Neck immobility Mallampati Classification: Class 4 Medications: Other - rocuronium Intubation method: Orotracheal Blade type: Mckay Blade size: 3 Equipment used: Glidescope ETT size: 8.0 ETT secured at: Teeth ETT secured at (cm): 24 Breath Sounds after Intubation: Right greater than left End tidal CO2 confirmed: Yes Post Intubation Xray: Yes Intubation Complications: Vomited, Apparent aspiration, O2 saturation decreased Critical Care Note - Critical Care Note Total time excluding time spent on procedures (mins): 120 Discharge - Discharge Clinical Impression: Hyperthermia, Intoxication, Unresponsive Condition: Critical Disposition: [facility] Unit Admitted: ICU
--- NOTE | 2018-03-11 15:29 | RADIOLOGY REPORT (SQ) ---
EXAM DESCRIPTION: CHEST SINGLE VIEW COMPLETED DATE/TIME: 03/11/2018 3:18 pm REASON FOR STUDY: ETT PLACEMENT, HIGH TEMP COMPARISON: None. EXAM PARAMETERS: NUMBER OF VIEWS: One view. TECHNIQUE: Single frontal radiographic view of the chest acquired. RADIATION DOSE: NA LIMITATIONS: Portable technique with faintly radiopaque artifact from the cooling blanket FINDINGS: LUNGS AND PLEURA: Air bronchograms are present in the medial aspect of the right upper lob e worrisome for pneumonia. Left retrocardiac consolidation with air bronchograms is present atelectasis versus pneumonia. No pleural effusion or pneumothorax. MEDIASTINUM AND HILAR STRUCTURES: No masses. Contour normal. HEART AND VASCULAR STRUCTURES: Heart normal in size. Normal vasculature. BONES: No acute findings. HARDWARE: Endotracheal tube tip 3 cm above the fabiana. Nasogastric tube tip and side port in the sto mach. OTHER: No other significant finding. IMPRESSION: Right upper lobe and left retrocardiac lung parenchymal consolidation worrisome for pneu monia Endotracheal tube, nasogastric tube in good positioning TECHNICAL DOCUMENTATION: JOB ID: [id number] [employer]- All Rights Reserved Reading location - IP/workstation name: [email or web address]
[2018-03-11 15:30] LABS: ABSOLUTE LYMPHOCYTES (AUTO) 2.5 10^3/uL (0.5-4.7); ABSOLUTE MONOCYTES (AUTO) 0.1 10^3/uL (0.1-1.4); ABSOLUTE NEUT (AUTO) 2.8 10^3/uL (1.7-8.2); BASOPHILS % (AUTO) 0.4 % (0-2); EOSINOPHILS % (AUTO) 0.3 % (0-6); HEMATOCRIT 45.1 % (37.9-51.0); HEMOGLOBIN 15.2 g/dL (13.5-17.0); LYMPHOCYTES % (AUTO) 45.5 % (13-45); MEAN CORPUSCULAR HEMOGLOBIN 29.5 pg (27.0-33.4); MEAN CORPUSCULAR HGB CONC 33.6 g/dL (32.0-36.0); MEAN CORPUSCULAR VOLUME 88 fl (80-97); MONOCYTES % (AUTO) 2.4 % (3-13); PLATELET COUNT 271 10^3/uL (150-450); RED BLOOD COUNT 5.13 10^6/uL (4.35-5.55); RED CELL DISTRIBUTION WIDTH 13.3 % (11.5-14.0); SEGMENTED NEUTROPHILS % (AUTO) 51.4 % (42-78); TOTAL CELLS COUNTED % (AUTO) 100 %; WHITE BLOOD COUNT 5.4 10^3/uL (4.0-10.5)
[2018-03-11 15:35] LABS: ALANINE AMINOTRANSFERASE 41 U/L (21-72); ALBUMIN 4.3 g/dL (3.5-5.0); ALKALINE PHOSPHATASE 76 U/L (38-126); ANION GAP 18 (5-19); ASPARTATE AMINO TRANSFERASE 64 U/L (17-59); BILIRUBIN,DIRECT 0.4 mg/dL (0.0-0.4); BILIRUBIN,TOTAL 0.4 mg/dL (0.2-1.3); BLOOD UREA NITROGEN 14 mg/dL (7-20); CALCIUM 8.6 mg/dL (8.4-10.2); CARBON DIOXIDE 18 mmol/L (22-30); CHLORIDE 110 mmol/L (98-107); CREATINE KINASE 585 U/L (55-170); GLUCOSE 127 mg/dL (75-110); POTASSIUM 5.8 mmol/L (3.6-5.0); SODIUM 145.5 mmol/L (137-145); TOTAL PROTEIN 7.8 g/dL (6.3-8.2)
[2018-03-11 15:36] LABS: ACETAMINOPHEN < 10 ug/mL (10-30); ALCOHOL < 10 mg/dL (NONE DETECTED); LITHIUM < 0.2 mEq/L (0.6-1.2); SALICYLATE < 1.0 mg/dL (2.0-20.0)
[2018-03-11 15:43] LABS: ARTERIAL BLOOD BASE EXCESS -11.9 mmol/L; ARTERIAL BLOOD H2CO3 2.31 mmol/L (1.05-1.35); ARTERIAL BLOOD HCO3 20.1 mmol/L (20-26); ARTERIAL BLOOD O2 SATURATION 95.2 % (94-98); ARTERIAL BLOOD PO2 108.9 mmHg (80-100); ARTERIAL BLOOD TOTAL CO2 22.4 mmol/L (23-27)
[2018-03-11] MEDS ORDERED: ROCURONIUM BROMIDE INJ 50 MG/5 ML VIAL IV ONE ×2 (15:46→15:47)
[2018-03-11] MEDS ORDERED: ETOMIDATE INJ/PF 20 MG/10 ML SDV IV ONE (15:46)
[2018-03-11] MEDS ORDERED: MIDAZOLAM 2 MG/2 ML INJ IV ONE ×3 (15:47→17:52)
[2018-03-11 15:48] LABS: ARTERIAL BLOOD FIO2 80%; ARTERIAL BLOOD PCO2 76.7 mmHg (35-45); ARTERIAL BLOOD PH 7.04 (7.35-7.45)
[2018-03-11 16:31] LABS: APPEARANCE,URINE CLEAR; BILIRUBIN,URINE NEGATIVE (NEGATIVE); GLUCOSE, URINE 50 mg/dL (NEGATIVE); KETONES,URINE NEGATIVE (NEGATIVE); LEUKOCYTE ESTERASE,URINE NEGATIVE (NEGATIVE); NITRITE,URINE NEGATIVE (NEGATIVE); PROTEIN,URINE 100 mg/dL (NEGATIVE); URINE SPECIFIC GRAVITY 1.012; UROBILINOGEN,URINE NEGATIVE mg/dL (<2.0)
[2018-03-11] MEDS ORDERED: DANTROLENE SODIUM INJ 20 MG VIAL IV PRN (16:31)
[2018-03-11 16:32] LABS: COLOR,URINE YELLOW
[2018-03-11 16:53] LABS: URINE BARBITURATES SCREEN NEGATIVE; URINE BENZODIAZEPINES SCREEN UNCONFIRMED POSITIVE; URINE COCAINE SCREEN NEGATIVE; URINE MARIJUANA (THC) SCREEN UNCONFIRMED POSITIVE; URINE METHADONE SCREEN NEGATIVE; URINE PHENCYCLIDINE SCREEN NEGATIVE
[2018-03-11 17:03] LABS: ARTERIAL BLOOD BASE EXCESS -10.8 mmol/L; ARTERIAL BLOOD H2CO3 1.87 mmol/L (1.05-1.35); ARTERIAL BLOOD HCO3 19.5 mmol/L (20-26); ARTERIAL BLOOD PCO2 62.1 mmHg (35-45); ARTERIAL BLOOD PO2 76.5 mmHg (80-100); ARTERIAL BLOOD TOTAL CO2 21.4 mmol/L (23-27)
[2018-03-11 17:05] LABS: ARTERIAL BLOOD FIO2 50%
[2018-03-11 17:07] LABS: ARTERIAL BLOOD PH 7.12 (7.35-7.45)
[2018-03-11] MEDS: RINGERS SOLUTION,LACTATED 1,000 ML IV PRN ×2 (18:01→18:38)
--- NOTE | 2018-03-11 18:28 | RADIOLOGY REPORT (SQ) ---
EXAM DESCRIPTION: CT HEAD WITHOUT COMPLETED DATE/TIME: 03/11/2018 6:14 pm REASON FOR STUDY: concern for bleed COMPARISON: None. TECHNIQUE: Axial images acquired through the brain without intravenous contrast. Images reviewed wi th bone, brain and subdural windows. Additional sagittal and coronal reconstructions were generated. Images stored on PACS. All CT scanners at this facility use dose modulation, iterative reconstruction, and/or weight based d osing when appropriate to reduce radiation dose to as low as reasonably achievable (ALARA). [facility]: Dose Right [facility]: CareDose [facility]: Dose Right [facility]: Teradose 4D [facility]: Smart Virtual Bridges RADIATION DOSE: CT Rad equipment meets quality standard of care and radiation dose reduction techniq ues were employed. CTDIvol: 55.2 mGy. DLP: 1084 mGy-cm. mGy. LIMITATIONS: None. FINDINGS: VENTRICLES: Normal size and contour. CEREBRUM: No masses. No hemorrhage. No midline shift. No evidence for acute infarction. Normal gra y/white matter differentiation. No areas of low density in the white matter. CEREBELLUM: No masses. No hemorrhage. No alteration of density. No evidence for acute infarction. EXTRAAXIAL SPACES: No fluid collections. No masses. ORBITS AND GLOBE: No intra- or extraconal masses. Normal contour of globe without masses. CALVARIUM: No fracture. PARANASAL SINUSES: No fluid or mucosal thickening. SOFT TISSUES: No mass or hematoma. OTHER: Intubated. IMPRESSION: NORMAL BRAIN CT WITHOUT CONTRAST. EVIDENCE OF ACUTE STROKE: NO. COMMENT: Quality ID # [id number]: Final reports with documentation of one or more dose reduction techniques (e.g., Automated exposure control, adjustment of the mA and/or kV according to patient size, use of iterative reconstruction technique) TECHNICAL DOCUMENTATION: JOB ID: [id number] [employer]- All Rights Reserved Reading location - IP/workstation name: [email or web address]
--- NOTE | 2018-03-11 18:43 | EKG REPORT ---
SEVERITY:- ABNORMAL ECG - SUPRAVENTRICULAR TACHYCARDIA NONSPECIFIC REPOL ABNORMALITY, DIFFUSE LEADS : Confirmed by: Jeremy Sidhu MD 11-Mar-2018 18:42:35
[2018-03-11 18:59] VITALS: BP 91/61
[2018-03-11] MEDS ORDERED: DANTROLENE SODIUM INJ 20 MG VIAL IV ONE (20:07)
[2018-03-13 09:20] LABS: HEPATITIS B CORE AB TOT Negative (Negative)
== END 2018-03-11 19:03 | disposition short-term general hospital (02) ==
LOC: ER 14:06
DX: T50.904A Poisoning by unspecified drugs, medicaments and biological substances, undetermined, initial encounter (principal); R56.9 Unspecified convulsions; R50.9 Fever, unspecified; R06.03 Acute respiratory distress; R40.0 Somnolence; I95.9 Hypotension, unspecified; R00.0 Tachycardia, unspecified; R19.4 Change in bowel habit; I25.2 Old myocardial infarction; F31.9 Bipolar disorder, unspecified; Z79.899 Other long term (current) drug therapy; Z77.098 Contact with and (suspected) exposure to other hazardous, chiefly nonmedicinal, chemicals
CPT/HCPCS: 31500; 36680; 93005; 99291; 99292; 96361; 51702; 96375; 96365; 96366; 36415; 87040; 80307 ×5; 82803; 82550; 80178; 85025; 81270; 80053; 81001; 86704; 83605; 71045; 70450; 94660; 93010; G0480; J3490 ×3; J2250; J2704; J7030; J7120

== ENCOUNTER 2018-03-25 09:33 | Emergency (ER) | payer MEDICAID ==
[2018-03-25 09:40] VITALS: BP 135/75
--- NOTE | 2018-03-25 10:07 | ER Document Report ---
ED Psych Disorder / Suicide - General Chief Complaint: Suicidal Ideation Stated Complaint: SUICIDAL IDEATION Time Seen by Provider: 03/25/18 09:59 Mode of Arrival: Ambulatory Information source: Patient Notes: Chief complaint: Suicidal thoughts History of complain:( obtained from----patient) 43 years old male with chronic psychiatric problem multiple visits here, not taking his medications, noncompliant presents today saying that the medication prescribed lithium is not working therefore he did not take it for a month, want help. He has called mobile crisis, and presented to the ED. Has no plan. Onset: Long-standing Duration: Long-standing Severity: Unknown Quality: Unknown Context: Homeless Exacerbating factor and relieving factors: Noncontributory REVIEW OF SYSTEMS: CONSTITUTIONAL : Denies fever, chills, or sweats. Denies recent illness. EENT: Denies eye, ear, throat, or mouth pain or symptoms. Denies nasal or sinus congestion or discharge. Denies throat, tongue, or mouth swelling or difficulty swallowing. CARDIOVASCULAR: Denies chest pain. Denies palpitations or racing or irregular heart beat. Denies ankle edema. RESPIRATORY: Denies cough, cold, or chest congestion. Denies shortness of breath, difficulty breathing, or wheezing. GASTROINTESTINAL: Denies distention. Denies nausea, vomiting, or diarrhea. Denies blood in vomitus, stools, or per rectum. Denies black, tarry stools. Denies constipation. GENITOURINARY: Denies difficulty urinating, painful urination, burning, frequency, blood in urine, or discharge. FEMALE GENITOURINARY: Denies vaginal bleeding, heavy or abnormal periods, irregular periods. Denies vaginal discharge or odor. MUSCULOSKELETAL: Denies back or neck pain or stiffness. Denies joint pain or swelling. SKIN: Denies rash, lesions or sores. HEMATOLOGIC : Denies easy bruising or bleeding. LYMPHATIC: Denies swollen, enlarged glands. NEUROLOGICAL: Denies confusion or altered mental status. Denies passing out or loss of consciousness. Denies dizziness or lightheadedness. Denies headache. Denies weakness or paralysis or loss of use of either side. Denies problems with gait or speech. Denies sensory loss, numbness, or tingling. Denies seizures. PSYCHIATRIC: As per history of complain ALL OTHER SYSTEMS REVIEWED AND NEGATIVE. PHYSICAL EXAMINATION: GENERAL: Well-appearing, well-nourished and in no acute distress. Unhygienic HEAD: Atraumatic, normocephalic. EYES: Pupils equal round and reactive to light, extraocular movements intact, conjunctiva are normal. ENT: Nares patent, oropharynx clear without exudates. Moist mucous membranes. NECK: Normal range of motion, supple without lymphadenopathy LUNGS: Breath sounds clear to auscultation bilaterally and equal. No wheezes rales or rhonchi. HEART: Regular rate and rhythm without murmurs ABDOMEN: Soft, nontender, nondistended abdomen. No guarding, no rebound. No masses appreciated. Examination of genitals-deferred Musculoskeletal: Normal range of motion, no pitting or edema. No cyanosis. NEUROLOGICAL: Cranial nerves grossly intact. Normal speech, normal gait. Normal sensory, motor exams PSYCH: Questionable seasonal suicidal ideation, no auditory or visual hallucinations. SKIN: Warm, Dry, normal turgor, no rashes or lesions noted. Dictation was performed using [employer] voice recognition software TRAVEL OUTSIDE OF THE [place] IN LAST 30 DAYS: No - HPI Notes: Dictated - Related Data Allergies/Adverse Reactions: No Known Allergies Allergy (Verified 03/11/18 15:26) Past Medical History - Social History Smoking Status: Current Every Day Smoker Frequency of alcohol use: Rare Drug Abuse: Marijuana Lives with: Homeless Family History: Reviewed & Not Pertinent - Past Medical History Cardiac Medical History: Reports: Hx Heart Attack - x'2 Renal/ Medical History: Denies: Hx Peritoneal Dialysis Psychiatric Medical History: Reports: Hx Bipolar Disorder, Hx Depression Review of Systems - Review of Systems Notes: Dictated Physical Exam - Vital signs Vitals: Temp Pulse Resp BP Pulse Ox 98.4 F 74 18 135/75 H 100 03/25/18 09:38 03/25/18 09:38 03/25/18 09:38 03/25/18 09:38 03/25/18 09:38 - Notes Notes: Dictated Course - Re-evaluation Re-evalutation: 03/25/18 10:08 He was evaluated by mental health in the hospital, he was discharged with the mobile crisis person to be taken to another facility. [facility] - Vital Signs Vital signs: Temp Pulse Resp BP Pulse Ox 98.4 F 74 18 135/75 H 100 03/25/18 09:38 03/25/18 09:38 03/25/18 09:38 08/31/18 09:38 03/25/18 09:38 Discharge - Discharge Clinical Impression: Unspecified personality disorder, Substance abuse Condition: Fair Disposition: HOME, SELF-CARE Instructions: Depression (COUNT INCLUDES THE [facility]) Additional Instructions: DEPRESSION: Your evaluation reveals that you have mental depression. While symptoms may be vague, they often include disturbance of sleep, fatigue, loss of appetite , and general loss of interest in life. While depression may be a side effect of drugs, or a reaction to a major change in your life, many cases have no known cause. If depression is acute, and related to a major loss in your life, you can expect it to clear completely with time. If you have been depressed a long time , are prone to repeated bouts of depression or low mood, or have been thinking of suicide, get help. Depression can be treated with anti-depressant medication and counselling. Long-term depression will often take a few weeks to clear, even with appropriate medication. Follow-up care is important. SUICIDAL IDEATION: Suicidal ideation is a common medical term for thoughts about suicide, which may be as detailed as a formulated plan, without the suicidal act itself. Although most people who undergo suicidal ideation do not commit suicide, some go on to make suicide attempts. The range of suicidal ideation varies greatly from fleeting to detailed planning, role playing, and unsuccessful attempts. While thoughts about suicide are common, most people do not carry out serious actions to commit suicide. Based upon your evaluation and discussion with you, we do not believe you are currently at risk to act upon your thoughts of suicide. You have agreed to return to the Emergency Department, at any time , if you feel inclined to act upon your suicidal thoughts. FOLLOW-UP CARE: If you have been referred to a physician for follow-up care, call the physician s office for an appointment as you were instructed or within the next two days. If you experience worsening or a significant change in your symptoms, notify the physician immediately or return to the Emergency Department at any time for re-evaluation.
--- NOTE | 2018-03-27 10:30 | PSYCHOLOGICAL NOTE ---
Psych Note - Psych Note Psych Note: Reason for Consult: Suicidal ideation Pt comes in today for SI. Pt comes fwith [facility] mobile crisis. Pt states he wants to cut himself; voluntarily handed his knife to aircraft worker before [facility] arrival. Patient disclosed that was brought in to [facility] ED by mobile crisis for thoughts of cutting his wrists. He confirms he gave his knife to the mobile aircraft worker. Patient states he wants help. He confirms he still has not filled his prescription from [facility], has not attempted to set up outpatient services and did not ask for assistance when he was inpatient medical treatment at [facility] this month; "I was just focused on getting back to [place]...I didn' t know that area." Patient is alert and orientated to person, place, time and circumstance. Mood is overall euthymic with congruent affect however does appear to be forcing dysphoric affect. Patient endorses chronic passive suicidal ideation i.e. no true plan means or intent. It is noted the patient fluctuates back and forth stating that he wants help, does not want anything to harm himself or others but then will attempt to justify his need for inpatient psychiatric treatment and restate ideation. Delusions are absent and behaviors congruent with an intact reality based presentation i.e. organized and linear thought processes. Eye contact is fair. Conversational speech is long-winded and rambling requiring clinician many times to interrupt the patient to get required information. Intellectual abilities appear to be within the average range. Attention and concentration is poor. Insight, judgment, impulse control is fair as evidenced by the patient calling for assistance in coming into [facility] ED voluntarily and handing over item (knife) to crisis work immediately. No medication recommendations at this time 301.9 (F60.9) unspecified personality disorder Impression/Plan: Patient is cleared from acute psychiatric services. Patient does not meet IVC criteria per [place] GS 122C. Patient has chronic passive suicidal ideation ie no plans, means, or intent. Patient refuses to follow recommendations that woud correctly address his mentla health concerns and is fixated on obtaining inpatient psychiatric treatment. Clinician reminded patient about previous conversations during his 02/10/2018, 02/11/2108 and 2016 visits on that the patient needs intensive therapy because he has a personality disorder with chronic passive suicidal ideation; he confirms she did not ask for psychiatric assistance while at [facility] when he was admitted for heat stroke. Patient is demonstrating a pattern of abuse of emergency services and using psychiatric hospitalization to meet his social needs i.e. homelessness. Patient is noncompliant with his medication he was provided from [facility] on 02/23/2018. Patient is recommended for outpatient individual therapy to address his triggers and develop coping skills. Inpatient psychiatric treatment would not be appropriate. Dr. Manjarrez was consulted and the care and management of this patient; attending physician is in agreement with recommendations and disposition.
== END 2018-03-25 10:15 | disposition home or self-care (01) ==
LOC: ER 09:33
DX: F60.9 Personality disorder, unspecified (principal); F19.10 Other psychoactive substance abuse, uncomplicated; F17.200 Nicotine dependence, unspecified, uncomplicated; I25.2 Old myocardial infarction
CPT/HCPCS: 99284

== ENCOUNTER 2018-04-12 17:21 | Emergency (ER) | payer MEDICAID ==
--- NOTE | 2018-04-12 17:56 | ER Document Report ---
ED Medical Screen (RME) - General Chief Complaint: ETOH Abuse Stated Complaint: ETOH Time Seen by Provider: 04/12/18 17:52 Mode of Arrival: Wheelchair Information source: Patient Cannot obtain history due to: Intoxicated Notes: Patient presents complaining of wanting to hurt himself and feeling suicidal with a plan to cut his wrist. Patient reports alcohol abuse with last use today. Patient reports drinking couple bottles of wine. Pt repeatedly asking for help with mental health. hx: depression, Etoh abuse I have greeted and performed a rapid initial assessment of this patient. A comprehensive ED assessment and evaluation of the patient, analysis of test results and completion of the medical decision making process will be conducted by additional ED providers. TRAVEL OUTSIDE OF THE [place] IN LAST 30 DAYS: No - Related Data Allergies/Adverse Reactions: No Known Allergies Allergy (Verified 04/12/18 17:21) Past Medical History - Past Medical History Cardiac Medical History: Reports: Hx Heart Attack - x'2 Renal/ Medical History: Denies: Hx Peritoneal Dialysis Psychiatric Medical History: Reports: Hx Bipolar Disorder, Hx Depression Physical Exam - Vital signs Vitals: Temp Pulse Resp BP Pulse Ox 98.6 F 104 H 18 137/83 H 98 04/12/18 17:43 04/12/18 17:43 04/12/18 17:43 04/12/18 17:43 04/12/18 17:43 - General General appearance: Alert Notes: unkempt, smells of etoh Course - Vital Signs Vital signs: Temp Pulse Resp BP Pulse Ox 98.6 F 104 H 18 137/83 H 98 04/12/18 17:43 04/12/18 17:43 04/12/18 17:43 04/12/18 17:43 04/12/18 17:43
[2018-04-12 18:37] LABS: ABSOLUTE LYMPHOCYTES (AUTO) 2.1 10^3/uL (0.5-4.7); ABSOLUTE MONOCYTES (AUTO) 0.6 10^3/uL (0.1-1.4); ABSOLUTE NEUT (AUTO) 2.8 10^3/uL (1.7-8.2); BASOPHILS % (AUTO) 0.7 % (0-2); EOSINOPHILS % (AUTO) 0.5 % (0-6); HEMATOCRIT 43.4 % (37.9-51.0); HEMOGLOBIN 14.8 g/dL (13.5-17.0); LYMPHOCYTES % (AUTO) 38.3 % (13-45); MEAN CORPUSCULAR HEMOGLOBIN 30.4 pg (27.0-33.4); MEAN CORPUSCULAR HGB CONC 34.2 g/dL (32.0-36.0); MEAN CORPUSCULAR VOLUME 89 fl (80-97); MONOCYTES % (AUTO) 11.1 % (3-13); PLATELET COUNT 239 10^3/uL (150-450); RED BLOOD COUNT 4.88 10^6/uL (4.35-5.55); RED CELL DISTRIBUTION WIDTH 14.5 % (11.5-14.0); SEGMENTED NEUTROPHILS % (AUTO) 49.4 % (42-78); TOTAL CELLS COUNTED % (AUTO) 100 %; WHITE BLOOD COUNT 5.6 10^3/uL (4.0-10.5)
[2018-04-12 18:39] LABS: APPEARANCE,URINE CLEAR; BILIRUBIN,URINE NEGATIVE (NEGATIVE); COLOR,URINE YELLOW; GLUCOSE, URINE NEGATIVE (NEGATIVE); KETONES,URINE NEGATIVE (NEGATIVE); LEUKOCYTE ESTERASE,URINE NEGATIVE (NEGATIVE); NITRITE,URINE NEGATIVE (NEGATIVE); PROTEIN,URINE NEGATIVE (NEGATIVE); URINE SPECIFIC GRAVITY 1.006; UROBILINOGEN,URINE NEGATIVE mg/dL (<2.0)
[2018-04-12 18:54] LABS: URINE AMPHETAMINES SCREEN NEGATIVE; URINE BARBITURATES SCREEN NEGATIVE; URINE BENZODIAZEPINES SCREEN NEGATIVE; URINE COCAINE SCREEN NEGATIVE; URINE MARIJUANA (THC) SCREEN UNCONFIRMED POSITIVE; URINE METHADONE SCREEN NEGATIVE; URINE PHENCYCLIDINE SCREEN NEGATIVE
[2018-04-12 18:57] LABS: ACETAMINOPHEN < 10 ug/mL (10-30); ALANINE AMINOTRANSFERASE 142 U/L (21-72); ALBUMIN 4.6 g/dL (3.5-5.0); ALCOHOL 239 mg/dL (NONE DETECTED); ALKALINE PHOSPHATASE 81 U/L (38-126); ANION GAP 16 (5-19); ASPARTATE AMINO TRANSFERASE 124 U/L (17-59); BILIRUBIN,DIRECT 0.5 mg/dL (0.0-0.4); BILIRUBIN,TOTAL 0.5 mg/dL (0.2-1.3); BLOOD UREA NITROGEN 8 mg/dL (7-20); CALCIUM 9.3 mg/dL (8.4-10.2); CARBON DIOXIDE 20 mmol/L (22-30); CHLORIDE 107 mmol/L (98-107); GLUCOSE 94 mg/dL (75-110); POTASSIUM 3.9 mmol/L (3.6-5.0); SALICYLATE < 1.0 mg/dL (2.0-20.0); SODIUM 142.5 mmol/L (137-145)
--- NOTE | 2018-04-12 20:47 | ER Document Report ---
ED Substance Abuse / Acc. OD - General Chief Complaint: ETOH Abuse Stated Complaint: ETOH Time Seen by Provider: 04/12/18 17:52 Mode of Arrival: Wheelchair Notes: Patient is a 43-year-old male presenting to the emergency department EtOH abuse and suicidal ideations. Patient was brought to the emergency department via EMS due to altered level of consciousness. Patient admits to drinking wine and beer today. Patient also states he wants to kill himself by cutting his wrists. Knives were found in patient's bag which is in the emergency department with patient. Patient denies homicidal ideations or visual or auditory hallucinations. Patient can currently tell staff his name and the president but he does not know the date or where he is. Pt. denies falling and has no outward signs of head or neck trauma. See Physical Exam notes. TRAVEL OUTSIDE OF THE [place] IN LAST 30 DAYS: No - Related Data Allergies/Adverse Reactions: No Known Allergies Allergy (Verified 04/12/18 17:21) Past Medical History - General Information source: Patient - Social History Smoking Status: Current Every Day Smoker Chew tobacco use (# tins/day): No Frequency of alcohol use: Heavy Drug Abuse: None Family History: Reviewed & Not Pertinent Patient has suicidal ideation: Yes Patient has homicidal ideation: No - Past Medical History Cardiac Medical History: Reports: Hx Heart Attack - x'2 Renal/ Medical History: Denies: Hx Peritoneal Dialysis Psychiatric Medical History: Reports: Hx Bipolar Disorder, Hx Depression Review of Systems - Review of Systems Constitutional: No symptoms reported EENT: No symptoms reported Cardiovascular: No symptoms reported Respiratory: No symptoms reported Gastrointestinal: No symptoms reported Genitourinary: No symptoms reported Male Genitourinary: No symptoms reported Musculoskeletal: No symptoms reported Skin: No symptoms reported Hematologic/Lymphatic: No symptoms reported Neurological/Psychological: See HPI Physical Exam - Vital signs Vitals: Temp Pulse Resp BP Pulse Ox 98.6 F 104 H 18 137/83 H 98 04/12/18 17:43 04/12/18 17:43 04/12/18 17:43 04/12/18 17:43 04/12/18 17:43 - Notes Notes: GENERAL: Alert. No acute distress. HEAD: Normocephalic, atraumatic. EYES: Pupils equal, round, and reactive to light. Extraocular movements intact. ENT: Oral mucosa moist, tongue midline. NECK: Full range of motion. Supple. Trachea midline. LUNGS: Clear to auscultation bilaterally, no wheezes, rales, or rhonchi. No respiratory distress. HEART: Regular rate and rhythm. No murmur ABDOMEN: Soft, non-tender. Non-distended. Bowel sounds present in all 4 quadrants. EXTREMITIES: Moves all 4 extremities spontaneously. No edema, normal radial and dorsalis pedis pulses bilaterally. No cyanosis. BACK: no cervical, thoracic, lumbar midline tenderness. No saddle anesthesia, normal distal neurovascular exam. NEUROLOGICAL: Patient able to tell staff his name and date of . Patient does not know what date it is or who the president is.. PSYCH: Normal affect, normal mood. SKIN: Warm, dry, normal turgor. No rashes or lesions noted. Course - Re-evaluation Re-evalutation: 04/13/18 06:00 RN stated patient had now awoken and is requesting Ativan. Pt. sitting on the edge of the bed, no obvious distress stated that he wants to be taken seriously. Stated that he knows he is homeless but that he really wants to kill himself he is not just looking for a place to stay. Pt. with no active tremors, non diaphoretic, Visteril ordered. Once pt. was more alert after sleeping he stated that he still wanted to kill himself. He also stated he wanted to kill himself with knives that he thought were in his bag. IVC Protocol ordered and reviewed results. Pt is medically cleared pending evaluation by mental health team. - Vital Signs Vital signs: Temp Pulse Resp BP Pulse Ox 97.8 F 94 18 114/62 95 04/13/18 05:53 04/13/18 05:53 04/13/18 05:53 04/13/18 05:53 04/13/18 05:53 - Laboratory Result Diagrams: 04/12/18 18:15 04/12/18 18:15 Laboratory results interpreted by me: 04/12/18 04/12/18 18:15 18:15 RDW 14.5 H Carbon Dioxide 20 L Direct Bilirubin 0.5 H AST 124 H ALT 142 H Salicylates < 1.0 L Acetaminophen < 10 L Discharge - Discharge Clinical Impression: Suicidal ideations Alcohol intoxication Qualifiers: Complication of substance-induced condition: uncomplicated Qualified Code(s): F10.920 - Alcohol use, unspecified with intoxication, uncomplicated Condition: Stable Disposition: PSYCH HOSP/UNIT
[2018-04-13] MEDS ORDERED: HYDROXYZINE PAMOATE 25 MG CAPSULE PO ONE (06:10)
--- NOTE | 2018-04-13 07:51 | PSYCHOLOGICAL NOTE ---
Psych Note - Psych Note Psych Note: Reason for Consult: substance abuse and suicidal ideation Patient presents complaining of wanting to hurt himself and feeling suicidal with a plan to cut his wrist. Patient reports alcohol abuse with last use today. Patient reports drinking couple bottles of wine. Pt repeatedly asking for help with mental health. Patient disclosed that he had shoplifted some wine and after drinking it he "could not stand myself" so called the police. He reports he started having thoughts of harming himself last night also. Patient asked for something to assist with his anxiety he was reminded he had received multiple prescriptions in the past that he never filled. Patient disclosed that he has no money to fill them. Patient was reminded he receives both Social Security and has Medicaid to assist in him receiving his mental health services. He reports he knows he doesn't follow through with what he needs to do for his mental health. Patient asks if he can go. Patient was recommended to follow-up with both [facility] in [facility] for continued assistance. Patient is alert and orientated to person, place, time and circumstance. Mood is overall euthymic with congruent affect however does appear to be forcing dysphoric affect. Patient endorses chronic passive suicidal ideation i.e. no true plan means or intent. It is noted the patient fluctuates back and forth stating that he wants help, does not want anything to harm himself or others but then will attempt to justify his need for inpatient psychiatric treatment and restate ideation. Delusions are absent and behaviors congruent with an intact reality based presentation i.e. organized and linear thought processes. Eye contact is fair. Conversational speech is long-winded and rambling requiring clinician many times to interrupt the patient to get required information. Intellectual abilities appear to be within the average range. Attention and concentration is poor. Insight, judgment, impulse control is fair as evidenced by the patient calling for assistance for [place] and using emergency services to meet his basic needs. No medication recommendations at this time 301.9 (F60.9) unspecified personality disorder Impression/Plan: Patient is cleared from acute psychiatric services. Patient does not meet IVC criteria per [place] GS 122C. Patient has chronic passive suicidal ideation ie no plans, means, or intent. Patient refuses to follow recommendations that woud correctly address his mentla health concerns and is fixated on obtaining inpatient psychiatric treatment. Clinician reminded patient about previous conversations during his 02/10/2018, 02/11/2108 and 2016 visits on that the patient needs intensive therapy because he has a personality disorder with chronic passive suicidal ideation; he confirms she did not ask for psychiatric assistance while at [facility] when he was admitted for heat stroke. Patient is demonstrating a pattern of abuse of emergency services and using psychiatric hospitalization to meet his social needs i.e. homelessness. Patient is noncompliant with his medication he was provided from [facility] on 02/23/2018. Patient is recommended for outpatient individual therapy to address his triggers and develop coping skills. Inpatient psychiatric treatment would not be appropriate. Dr. Manjarrez was consulted and the care and management of this patient; attending physician is in agreement with recommendations and disposition.
--- NOTE | 2018-04-13 10:16 | ER Document Report ---
Doctor's Note Notes: 04/13/18 10:16 Patient has been seen and evaluated resting comfortably no acute distress. Laboratory values previous provider note and vital signs have been evaluated. Patient otherwise looks to be stable for disposition/transfer.
[2018-04-13 11:07] VITALS: BP 148/92
--- NOTE | 2018-04-13 22:27 | EKG REPORT ---
SEVERITY:- OTHERWISE NORMAL ECG - SINUS TACHYCARDIA : Confirmed by: Katie Almeida MD 13-Apr-2018 22:26:38
== END 2018-04-13 10:30 | disposition home or self-care (01) ==
LOC: ER 17:21
DX: F10.10 Alcohol abuse, uncomplicated (principal); F10.120 Alcohol abuse with intoxication, uncomplicated; R45.851 Suicidal ideations; F17.200 Nicotine dependence, unspecified, uncomplicated; I25.2 Old myocardial infarction; Z59.0 Homelessness
CPT/HCPCS: 93005; 99285; 36415; 80307 ×4; 85025; 80053; 81001; 93010; J3490